=== PATIENT | male | born 1995 | race Caucasian/White ===

== ENCOUNTER 2016-12-06 20:47 | Emergency (ER) | payer MEDICAID, SELFPAY ==
--- NOTE | 2016-12-07 00:37 | EDDOCDS ---
Physician Documentation [facility] Name: Vignesh Howell Age: 21 yrs Sex: Male : 1995 Arrival Date: 12/06/2016 Time: 20:47 Bed Triage 2 Private MD: Disposition: 12/07/16 00:28 Discharged to Home/Self Care. Impression: Acute upper respiratory infection, unspecified. - Condition is Stable. - Discharge Instructions: Smoking Cessation, Upper Respiratory Infection, Adult. - Prescriptions for benzonatate 200 mg Oral Capsule - take 1 capsule by ORAL route 3 times per day As needed; 30 capsule. Fluticasone 50 mcg/actuation Nasal [address], Suspension - inhale 1 spray by INTRANASAL route 2 times per day; 1 bottle. - Work Release Form - 1 day, Medication Reconciliation, Local Pharmacy Hours form. - Follow up: Emergency Department; When: As needed; Reason: Trouble breathing, Worsening of conditions. [facility]; When: Call to arrange an appointment; Reason: To establish care. - Problem is new. - Symptoms are unchanged. Historical: - Allergies: no known allergies; - Home Meds: 1. Tylenol 325 mg oral tab 2 tabs as needed (Last dose: 12/06/2016 16:30) 2. Motrin 400 mg Oral tab 1 tab as needed (Last dose: 12/06/2016 16:30) - PMHx: none; - PSHx: none; - Social history: Smoking status: Patient uses tobacco products, current every day smoker. No barriers to communication noted, The patient speaks fluent Armenian, Speaks appropriately for age. - Family history: Not pertinent. - : The pt / caregiver states he / she is not on anticoagulants. Home medication list is obtained from the patient. - Exposure Risk Screening:: None identified. Vital Signs: 12/06 20:49 BP 126 / 64; Pulse 85; Resp 17; Temp 98.4(T); Pulse Ox 100% on R/A; Weight 57.15 kg / lr2 125.99 lbs (R); Height 5 ft. 7 in. (170.18 cm) (R); Pain 5/10; 23:18 BP 135 / 74; Pulse 86; Resp 18 S; Temp 98.3(O); Pulse Ox 98% on R/A; Weight 58.97 kg / gr2 130.01 lbs (R); Height 5 ft. 7 in. (170.18 cm) (R); Pain 8/; 23:18 Body Mass Index 20.36 (58.97 kg, 170.18 cm) gr2 MDM: 12/07 00:11 Strep Screen, Nursing ordered. ar2 00:28 GATS (NEGATIVE STREP SCREEN) Ordered. EDMS Signatures: Dispatcher [employer] EDMS Jovan Pearl PA-C PA-C ar2 Deanna Galarza,RN RN dsf MTDD
--- NOTE | 2016-12-07 00:37 | EDDOCDS ---
Nurse's Notes [facility] Name: Vignesh Howell Age: 21 yrs Sex: Male : 1995 Arrival Date: 12/06/2016 Time: 20:47 Bed Triage 2 Private MD: Diagnosis: Acute upper respiratory infection, unspecified Presentation: 12/06 20:59 Presenting complaint: Patient states: fever, body aches, BENAVIDEZ and coughing for the past dsf 4-5 days. Adult Sepsis Screening: The patient does not have new or worsening altered mentation. Patient's respiratory rate is less than 22. Systolic blood pressure is greater than 100. Patient has a qSOFA score of 0- Negative Sepsis Screen. Suicide/Homicide risk assessment- the patient denies having any suicidal and/or homicidal ideations and does not present with any other emotional, behavioral or mental health complaints. Status: Patient is not a implementation services analyst or dependent. Transition of care: patient was not received from another setting of care. 20:59 Acuity: JAMES Level 4 dsf 20:59 Method Of Arrival: Walkin/Carried/Asstd dsf Triage Assessment: 21:01 General: Appears in no apparent distress, Behavior is appropriate for age, cooperative, dsf Reports chills for 12-24 hours, fever for 12-24 hours, feeling ill for > 3 days, fatigue for 2-3 days. Pain: Location: head Pain currently is 7 out of 10 on a pain scale. Pt Declines HIV testing. Respiratory: Reports cough that is non-productive. Historical: - Allergies: no known allergies; - Home Meds: 1. Tylenol 325 mg oral tab 2 tabs as needed (Last dose: 12/06/2016 16:30) 2. Motrin 400 mg Oral tab 1 tab as needed (Last dose: 12/06/2016 16:30) - PMHx: none; - PSHx: none; - Social history: Smoking status: Patient uses tobacco products, current every day smoker. No barriers to communication noted, The patient speaks fluent Occitan, Speaks appropriately for age. - Family history: Not pertinent. - : The pt / caregiver states he / she is not on anticoagulants. Home medication list is obtained from the patient. - Exposure Risk Screening:: None identified. Screenin/19 00:35 Screening information is obtained from the patient. Fall risk: No risks identified. dsf Assistance ADL's: requires no assistance with activities of daily living. Abuse/DV Screen: The patient / caregiver reports he/she is: not in a situation that causes fear, pain or injury. Nutritional screening: No deficits noted. Advance Directives: Currently, there is no health care proxy. home support is adequate. Assessment: 00:35 Adult Sepsis Screening: The patient does not have new or worsening altered mentation. dsf Patient's respiratory rate is less than 22. Systolic blood pressure is greater than 100. Patient has a qSOFA score of 0- Negative Sepsis Screen. General: Appears in no apparent distress, Behavior is appropriate for age, cooperative. Neurological: Level of Consciousness is awake, alert. Cardiovascular: Capillary refill < 3 seconds Heart tones S1 S2 present. Respiratory: Airway is patent Respiratory effort is even, unlabored, Respiratory pattern is regular, symmetrical. Derm: Skin is pink, warm & dry. Vital Signs: 12/06 20:49 BP 126 / 64; Pulse 85; Resp 17; Temp 98.4(T); Pulse Ox 100% on R/A; Weight 57.15 kg lr2 (R); Height 5 ft. 7 in. (170.18 cm) (R); Pain 5/10; 23:18 BP 135 / 74; Pulse 86; Resp 18 S; Temp 98.3(O); Pulse Ox 98% on R/A; Weight 58.97 kg gr2 (R); Height 5 ft. 7 in. (170.18 cm) (R); Pain 8/10; 23:18 Body Mass Index 20.36 (58.97 kg, 170.18 cm) gr2 Vitals: 20:49 Log In Time: December 06, 2016 at 20:47. lr2 23:18 Log In Time: December 06, 2016 at 23:18. gr2 ED Course: 20:49 Patient visited by Marie Childs. lr2 20:49 Patient moved to Waiting lr2 20:50 Patient moved to Pre RCE lr2 20:59 Triage Initiated dsf 23:20 Patient visited by Jewels Minor. gr2 23:41 Patient moved to Triage 2 cz 12/07 00:06 Jovan Pearl PA-C is PHCP. ar2 00:07 Cosmo Delgado DO is Attending Physician. ar2 00:07 Patient visited by Jovan Pearl PA-C. ar2 00:28 [facility] is Referral Physician. ar2 00:35 The patient / caregiver is instructed regarding the plan of care and ED course. dsf 00:35 No IV's were initiated during this patient's visit. No procedures done that require dsf assistance. Order Results: There are currently no results for this order. Outcome: 00:28 Discharge ordered by Provider. ar2 00:35 Discharge Assessment: Patient awake, alert and oriented x 3. No cognitive and/or dsf functional deficits noted. Patient verbalized understanding of disposition instructions. patient administered narcotics - no. The following High Risk Discharge criteria are identified: None. Discharged to home ambulatory. Condition: stable. Discharge instructions given to patient, Instructed on discharge instructions, follow up and referral plans. medication usage, Demonstrated understanding of instructions, medications, Pt was receptive of discharge instructions/ teaching. Prescriptions given X 1. No special radiology studies were completed. Property sent home with patient. 00:36 Patient left the ED. dsf Signatures: Amado Schmitt, RN RN Jovan Pearl PA-C PA-C ar2 Deanna Galarza RN RN dsf Jewels Minor gr2 Marie Childs lr2 [facility]
--- NOTE | 2016-12-09 01:37 | EDDOCDS ---
Nurse's Notes [facility] Name: Vignesh Howell Age: 21 yrs Sex: Male : 1995 Arrival Date: 12/06/2016 Time: 20:47 Bed Triage 2 Private MD: Diagnosis: Acute upper respiratory infection, unspecified Presentation: 12/06 20:59 Presenting complaint: Patient states: fever, body aches, BENAVIDEZ and coughing for the past dsf 4-5 days. Adult Sepsis Screening: The patient does not have new or worsening altered mentation. Patient's respiratory rate is less than 22. Systolic blood pressure is greater than 100. Patient has a qSOFA score of 0- Negative Sepsis Screen. Suicide/Homicide risk assessment- the patient denies having any suicidal and/or homicidal ideations and does not present with any other emotional, behavioral or mental health complaints. Status: Patient is not a direct service professional or dependent. Transition of care: patient was not received from another setting of care. 20:59 Acuity: JAMES Level 4 dsf 20:59 Method Of Arrival: Walkin/Carried/Asstd dsf Triage Assessment: 21:01 General: Appears in no apparent distress, Behavior is appropriate for age, cooperative, dsf Reports chills for 12-24 hours, fever for 12-24 hours, feeling ill for > 3 days, fatigue for 2-3 days. Pain: Location: head Pain currently is 7 out of 10 on a pain scale. Pt Declines HIV testing. Respiratory: Reports cough that is non-productive. Historical: - Allergies: no known allergies; - Home Meds: 1. Tylenol 325 mg oral tab 2 tabs as needed (Last dose: 12/06/2016 16:30) 2. Motrin 400 mg Oral tab 1 tab as needed (Last dose: 12/06/2016 16:30) - PMHx: none; - PSHx: none; - Social history: Smoking status: Patient uses tobacco products, current every day smoker. No barriers to communication noted, The patient speaks fluent Occitan, Speaks appropriately for age. - Family history: Not pertinent. - : The pt / caregiver states he / she is not on anticoagulants. Home medication list is obtained from the patient. - Exposure Risk Screening:: None identified. Screenin/19 00:35 Screening information is obtained from the patient. Fall risk: No risks identified. dsf Assistance ADL's: requires no assistance with activities of daily living. Abuse/DV Screen: The patient / caregiver reports he/she is: not in a situation that causes fear, pain or injury. Nutritional screening: No deficits noted. Advance Directives: Currently, there is no health care proxy. home support is adequate. Assessment: 00:35 Adult Sepsis Screening: The patient does not have new or worsening altered mentation. dsf Patient's respiratory rate is less than 22. Systolic blood pressure is greater than 100. Patient has a qSOFA score of 0- Negative Sepsis Screen. General: Appears in no apparent distress, Behavior is appropriate for age, cooperative. Neurological: Level of Consciousness is awake, alert. Cardiovascular: Capillary refill < 3 seconds Heart tones S1 S2 present. Respiratory: Airway is patent Respiratory effort is even, unlabored, Respiratory pattern is regular, symmetrical. Derm: Skin is pink, warm & dry. Vital Signs: 12/06 20:49 BP 126 / 64; Pulse 85; Resp 17; Temp 98.4(T); Pulse Ox 100% on R/A; Weight 57.15 kg lr2 (R); Height 5 ft. 7 in. (170.18 cm) (R); Pain 5/10; 23:18 BP 135 / 74; Pulse 86; Resp 18 S; Temp 98.3(O); Pulse Ox 98% on R/A; Weight 58.97 kg gr2 (R); Height 5 ft. 7 in. (170.18 cm) (R); Pain 8/10; 23:18 Body Mass Index 20.36 (58.97 kg, 170.18 cm) gr2 Vitals: 20:49 Log In Time: December 06, 2016 at 20:47. lr2 23:18 Log In Time: December 06, 2016 at 23:18. gr2 ED Course: 20:49 Patient visited by Marie Childs. lr2 20:49 Patient moved to Waiting lr2 20:50 Patient moved to Pre RCE lr2 20:59 Triage Initiated dsf 23:20 Patient visited by Jewels Minor. gr2 23:41 Patient moved to Triage 2 cz 12/07 00:06 Jovan Pearl PA-C is PHCP. ar2 00:07 Cosmo Delgado DO is Attending Physician. ar2 00:07 Patient visited by Jovan Pearl PA-C. ar2 00:28 [facility] is Referral Physician. ar2 00:35 The patient / caregiver is instructed regarding the plan of care and ED course. dsf 00:35 No IV's were initiated during this patient's visit. No procedures done that require dsf assistance. 12:06 T-Sheet-- Draft Copy was scanned into [employer] and attached to record. lg Order Results: Lab Order: GATS (NEGATIVE STREP SCREEN); SPEC'M 12/07/16 00:24 Test: GATS CULTURE (NEG STREP SCR); Value: GATS RESULT NEGATIVE FOR STREP PYOGENES (GROUP A); Status: F Test: GATS CULTURE (NEG STREP SCR); Value: <EXTERNAL COMMENT eCWMed> FULL REPORT IN LAB NOTES (eCW and Medent).; Status: F Outcome: 00:28 Discharge ordered by Provider. ar2 00:35 Discharge Assessment: Patient awake, alert and oriented x 3. No cognitive and/or dsf functional deficits noted. Patient verbalized understanding of disposition instructions. patient administered narcotics - no. The following High Risk Discharge criteria are identified: None. Discharged to home ambulatory. Condition: stable. Discharge instructions given to patient, Instructed on discharge instructions, follow up and referral plans. medication usage, Demonstrated understanding of instructions, medications, Pt was receptive of discharge instructions/ teaching. Prescriptions given X 1. No special radiology studies were completed. Property sent home with patient. 00:36 Patient left the ED. dsf Signatures: Amado Schmitt, MILAD STINSON cz Bimal Tran, Suhail Reg lg Jovan Pearl PA-C PA-C ar2 Deanna Galarza RN RN f Jewels Minor gr2 Marie Childs2 Chart Complete MTDD
--- NOTE | 2016-12-09 01:37 | EDDOCDS ---
Physician Documentation [facility] Name: Vignesh Howell Age: 21 yrs Sex: Male : 1995 Arrival Date: 12/06/2016 Time: 20:47 Bed Triage 2 Private MD: Disposition: 12/07/16 00:28 Discharged to Home/Self Care. Impression: Acute upper respiratory infection, unspecified. - Condition is Stable. - Discharge Instructions: Smoking Cessation, Upper Respiratory Infection, Adult. - Prescriptions for benzonatate 200 mg Oral Capsule - take 1 capsule by ORAL route 3 times per day As needed; 30 capsule. Fluticasone 50 mcg/actuation Nasal [place], Suspension - inhale 1 spray by INTRANASAL route 2 times per day; 1 bottle. - Work Release Form - 1 day, Medication Reconciliation, Local Pharmacy Hours form. - Follow up: Emergency Department; When: As needed; Reason: Trouble breathing, Worsening of conditions. [facility]; When: Call to arrange an appointment; Reason: To establish care. - Problem is new. - Symptoms are unchanged. Historical: - Allergies: no known allergies; - Home Meds: 1. Tylenol 325 mg oral tab 2 tabs as needed (Last dose: 12/06/2016 16:30) 2. Motrin 400 mg Oral tab 1 tab as needed (Last dose: 12/06/2016 16:30) - PMHx: none; - PSHx: none; - Social history: Smoking status: Patient uses tobacco products, current every day smoker. No barriers to communication noted, The patient speaks fluent [place] Island[place], Speaks appropriately for age. - Family history: Not pertinent. - : The pt / caregiver states he / she is not on anticoagulants. Home medication list is obtained from the patient. - Exposure Risk Screening:: None identified. Vital Signs: 12/06 20:49 BP 126 / 64; Pulse 85; Resp 17; Temp 98.4(T); Pulse Ox 100% on R/A; Weight 57.15 kg / lr2 125.99 lbs (R); Height 5 ft. 7 in. (170.18 cm) (R); Pain 5/10; 23:18 BP 135 / 74; Pulse 86; Resp 18 S; Temp 98.3(O); Pulse Ox 98% on R/A; Weight 58.97 kg / gr2 130.01 lbs (R); Height 5 ft. 7 in. (170.18 cm) (R); Pain 8/10; 23:18 Body Mass Index 20.36 (58.97 kg, 170.18 cm) gr2 MDM: 12/07 00:11 Strep Screen, Nursing ordered. ar2 00:28 GATS (NEGATIVE STREP SCREEN) Ordered. EDMS 12:06 T-Sheet-- Draft Copy was scanned into [employer] and attached to record. lg Signatures: Dispatcher [employer] EDMS Bimal Tran, Reg Reg lg Jovan Pearl PA-C PA-C ar2 Deanna GalarzaRN RN dsf The chart was reviewed and I authenticate all verbal orders and agree with the evaluation and treatment provided.Attachments: 12:06 T-Sheet-- Draft Copy lg Chart Complete MTDD
--- NOTE | 2016-12-09 01:37 | EDDOCDS ---
Physician Documentation [facility] Name: Vignesh Howell Age: 21 yrs Sex: Male : 1995 Arrival Date: 12/06/2016 Time: 20:47 Bed Triage 2 Private MD: Disposition: 12/07/16 00:28 Discharged to Home/Self Care. Impression: Acute upper respiratory infection, unspecified. - Condition is Stable. - Discharge Instructions: Smoking Cessation, Upper Respiratory Infection, Adult. - Prescriptions for benzonatate 200 mg Oral Capsule - take 1 capsule by ORAL route 3 times per day As needed; 30 capsule. Fluticasone 50 mcg/actuation Nasal [place], Suspension - inhale 1 spray by INTRANASAL route 2 times per day; 1 bottle. - Work Release Form - 1 day, Medication Reconciliation, Local Pharmacy Hours form. - Follow up: Emergency Department; When: As needed; Reason: Trouble breathing, Worsening of conditions. Follow [facility]: [facility]; When: Call to arrange an appointment; Reason: To establish care. - Problem is new. - Symptoms are unchanged. Historical: - Allergies: no known allergies; - Home Meds: 1. Tylenol 325 mg oral tab 2 tabs as needed (Last dose: 12/06/2016 16:30) 2. Motrin 400 mg Oral tab 1 tab as needed (Last dose: 12/06/2016 16:30) - PMHx: none; - PSHx: none; - Social history: Smoking status: Patient uses tobacco products, current every day smoker. No barriers to communication noted, The patient speaks fluent Austrian, Speaks appropriately for age. - Family history: Not pertinent. - : The pt / caregiver states he / she is not on anticoagulants. Home medication list is obtained from the patient. - Exposure Risk Screening:: None identified. Vital Signs: 12/06 20:49 BP 126 / 64; Pulse 85; Resp 17; Temp 98.4(T); Pulse Ox 100% on R/A; Weight 57.15 kg / lr2 125.99 lbs (R); Height 5 ft. 7 in. (170.18 cm) (R); Pain 5/10; 23:18 BP 135 / 74; Pulse 86; Resp 18 S; Temp 98.3(O); Pulse Ox 98% on R/A; Weight 58.97 kg / gr2 130.01 lbs (R); Height 5 ft. 7 in. (170.18 cm) (R); Pain 8/10; 23:18 Body Mass Index 20.36 (58.97 kg, 170.18 cm) gr2 MDM: 12/07 00:11 Strep Screen, Nursing ordered. ar2 00:28 GATS (NEGATIVE STREP SCREEN) Ordered. EDMS 12:06 T-Sheet-- Draft Copy was scanned into [employer] and attached to record. lg Signatures: Dispatcher [employer] EDMS Bimal Tran, Reg Reg lg Jovan Pearl PA-C PA-C ar2 Deanna GalarzaRN RN dsf The chart was reviewed and I authenticate all verbal orders and agree with the evaluation and treatment provided.Attachments: 12:06 T-Sheet-- Draft Copy lg Chart Complete MTDD
== END 2016-12-07 00:36 | disposition home or self-care (01) ==
LOC: M ED 20:47
DX: J06.9 Acute upper respiratory infection, unspecified (principal); F17.210 Nicotine dependence, cigarettes, uncomplicated